=== PATIENT | male | born 1960 | race Two or more races ===

== ENCOUNTER 2018-06-21 04:50 | Emergency (ER) | payer SELFPAY ==
[~2018-06-21] VITALS: Ht 167.6 cm; Wt 180.0 kg
[2018-06-21 04:51] VITALS: BP 135/63
[2018-06-21] MEDS ORDERED: ASPIRIN 81 MG TABLET CHEW PO ONE (05:00)
[2018-06-21] MEDS ORDERED: PLEASE ENTER ALLERGIES MC SCH (05:00)
[2018-06-21] MEDS ORDERED: ASPIRIN 81 MG TABLET CHEW ONE (05:07)
[2018-06-21 05:38] LABS: BASOPHILS # (AUTO) 0.03 x10^3/uL (0-0.1); BASOPHILS % (AUTO) 1 % (0-1); EOSINOPHILS # (AUTO) 0.33 x10^3/uL (0-0.4); EOSINOPHILS % (AUTO) 6 % (1-7); LYMPHOCYTES # (AUTO) 0.97 x10^3/uL (1-3.4); LYMPHOCYTES % (AUTO) 16 % (22-44); MD NO; MEAN CORPUSCULAR HEMOGLOBIN 25.4 pg (27.5-34.5); MEAN CORPUSCULAR HGB CONC 32.9 g/dL (33.2-36.2); MEAN CORPUSCULAR VOLUME 76.9 fL (81-97); MEAN PLATELET VOLUME 9.3 fL (7.4-10.4); MONOCYTES # (AUTO) 0.47 x10^3/uL (0.2-0.8); MONOCYTES % (AUTO) 8 % (2-9); NEUTROPHILS # (AUTO) 4.18 x10^3/uL (1.8-6.8); NEUTROPHILS % (AUTO) 70 % (42-75); PLATELET COUNT 255 x10^3/uL (130-400); RED BLOOD COUNT 3.85 x10^6/uL (4.38-5.82); RED CELL DISTRIBUTION WIDTH 20.6 % (9.4-14.8)
[2018-06-21 05:47] LABS: ANION GAP 8 mmol/L (5-15); CALCIUM 8.3 mg/dL (8.5-10.1); CHLORIDE 106 mmol/L (98-107)
[2018-06-21 05:51] LABS: TROPONIN I < 0.015 ng/mL (0.000-0.045)
== END 2018-06-21 06:23 | disposition home or self-care (01) ==
LOC: ED 06:20
DX: R07.9 Chest pain, unspecified (principal); I87.2 Venous insufficiency (chronic) (peripheral); I50.9 Heart failure, unspecified
CPT/HCPCS: 36415; 71045; 80048; 82040; 83880; 84484; 85025; 93005; 99284

== ENCOUNTER 2018-08-10 12:18 | Emergency (ER) | payer SELFPAY ==
[~2018-08-10] VITALS: Ht 167.6 cm; Wt 139.0 kg
--- NOTE | 2018-08-10 12:40 | NUR ---
pt bib remsa for bilateral leg swelling. pt is homeless and has been out of his lasix for 4 days. pt a&ox4. pt placed on bp and cont. pulse oximeter. ekg done and presented to md. assessment completed. awaiting .
--- NOTE | 2018-08-10 13:19 | NUR ---
requested medical records from [facility]
[2018-08-10] MEDS ORDERED: FUROSEMIDE 40 MG TABLET ONE (13:25)
[2018-08-10] MEDS ORDERED: FUROSEMIDE 40 MG TABLET PO ONE (13:30)
--- NOTE | 2018-08-10 13:31 | NUR ---
BREAK RN: PT GIVEN ANOTHER BLANKET, REPORTS NO OTHER NEEDS AT THIS TIME
[2018-08-10 13:37] LABS: MEAN CORPUSCULAR HEMOGLOBIN 25.9 pg (27.5-34.5); MEAN CORPUSCULAR HGB CONC 31.8 g/dL (33.2-36.2); MEAN CORPUSCULAR VOLUME 81.6 fL (81-97); MEAN PLATELET VOLUME 8.6 fL (7.4-10.4); PLATELET COUNT 269 x10^3/uL (130-400); RED BLOOD COUNT 4.03 x10^6/uL (4.38-5.82); RED CELL DISTRIBUTION WIDTH 22.1 % (9.4-14.8)
[2018-08-10 13:46] LABS: ALBUMIN 3.4 g/dL (3.4-5.0); ANION GAP 9 mmol/L (5-15); CALCIUM 8.9 mg/dL (8.5-10.1); CHLORIDE 109 mmol/L (98-107); CREATININE 0.88 mg/dL (0.7-1.3)
[2018-08-10 13:52] LABS: BASOPHILS # (AUTO) 0.04 x10^3/uL (0-0.1); BASOPHILS % (AUTO) 1 % (0-1); EOSINOPHILS # (AUTO) 0.09 x10^3/uL (0-0.4); EOSINOPHILS % (AUTO) 2 % (1-7); LYMPHOCYTES # (AUTO) 0.98 x10^3/uL (1-3.4); LYMPHOCYTES % (AUTO) 16 % (22-44); MD MORPH REVIEW ONLY; MONOCYTES # (AUTO) 0.39 x10^3/uL (0.2-0.8); MONOCYTES % (AUTO) 7 % (2-9); NEUTROPHILS # (AUTO) 4.49 x10^3/uL (1.8-6.8); NEUTROPHILS % (AUTO) 75 % (42-75)
[2018-08-10 13:53] LABS: ANISOCYTOSIS 1+; HYPOCHROMIA 1+; MICROCYTOSIS 1+
[2018-08-10 13:54] LABS: <PLATELET ESTIMATE> ADEQUATE; <PLT MORPHOLOGY> NORMAL PLT MORPH; OVALOCYTES 1+
[2018-08-10 15:00] VITALS: BP 175/88
--- NOTE | 2018-08-10 15:00 | NUR ---
PT RESTING IN BED. PT WITH WARM BLANKET.
[2018-08-10] MEDS ORDERED: FURO40TA6 PO (15:02)
--- NOTE | 2018-08-10 15:26 | NUR ---
pt up for recheck
--- NOTE | 2018-08-10 16:00 | NUR ---
social work coordinator at bedside.
--- NOTE | 2018-08-10 16:15 | NUR ---
pt given taxi voucher to [facility]. pt given discharge instructions and socks. pt up ambulatory and stable on feet.
== END 2018-08-10 16:29 | disposition home or self-care (01) ==
LOC: ED 12:41
DX: R60.0 Localized edema (principal); I11.0 Hypertensive heart disease with heart failure; I50.9 Heart failure, unspecified; R06.02 Shortness of breath; Z72.9 Problem related to lifestyle, unspecified
CPT/HCPCS: 36415; 71045; 80048; 82040; 85025; 93005; 93970; 99284